=== PATIENT | female | born 1950 | race Hispanic/Latino ===

== ENCOUNTER 2017-11-12 15:44 | Observation (INO) | payer MEDICARE ==
[~2017-11-12] VITALS: Ht 157.5 cm; Wt 75.2 kg
[2017-11-12 16:12] LABS: BASOPHILS % (AUTO) 0.8 % (0.0-5.0); EOSINOPHILS % (AUTO) 4.5 % (0.0-8.0); HEMATOCRIT 22.1 % (36-48); LYMPHOCYTES % (AUTO) 28.7 % (21.0-51.0); MEAN CORPUSCULAR HEMOGLOBIN 23.8 pg (27.0-33.0); MEAN CORPUSCULAR HGB CONC 30.8 g/dL (32.0-36.0); MEAN CORPUSCULAR VOLUME 77.1 fL (79-99); MONOCYTES % (AUTO) 7.2 % (3.0-13.0); NEUTROPHILS % (AUTO) 58.8 % (40.0-77.0); NUCLEATED RED BLOOD CELLS 0.1 % (0.0-0.19); PLATELET COUNT (AUTO) 68 K/uL (130-400); RED BLOOD CELL COUNT(AUTO) 2.86 MIL/uL (4.00-5.50); RED CELL DISTRIBUTION WIDTH 21.5 % (11.0-15.5); WHITE BLOOD COUNT (AUTO) 3.9 K/uL (4.8-10.8)
[2017-11-12 16:25] LABS: CREATININE 0.7 mg/dL (0.5-1.5); INR 1.2 (0.85-1.15); PARTIAL THROMBOPLASTIN TIME 29.5 SEC (26.3-35.5); POTASSIUM 3.7 mmol/L (3.5-5.1); PROTHROMBIN TIME 12.6 SEC (9.6-11.6)
[2017-11-12 16:36] LABS: B-TYPE NATRIURETIC PEPTIDE 77 pg/mL (0-100)
[2017-11-12 16:40] LABS: ALBUMIN 2.4 g/dL (3.5-5.0); BILIRUBIN,TOTAL 2.1 mg/dL (0.2-1.0); CREATINE KINASE MB 1.2 ng/mL (0.5-3.6); TOTAL PROTEIN, SERUM 6.5 g/dL (6.0-8.3)
[2017-11-12] MEDS ORDERED: ONDANSETRON HCL MDV 20ML 2 MG/ML VIAL ONE ×2 (16:43→20:23)
[2017-11-12 16:47] LABS: PLATELET MORPHOLOGY DECREASED
[2017-11-12] MEDS ORDERED: LACTULOSE 20 GM/30 ML UDCUP ONE (18:39)
[2017-11-12] MEDS ORDERED: FUROSEMIDE 10 MG/ML 4ML VIAL ONE (18:44)
[2017-11-12] MEDS ORDERED: ALBUMIN (HUMAN) 25% 0 ML IV ONE (18:53)
[2017-11-12] MEDS ORDERED: ALBUMIN (HUMAN) 25% 100 ML IV ONE (18:54)
[2017-11-12] MEDS ORDERED: MAG HYDROX/AL HYDROX/SIMETH ES 30 ML SUSP UDCUP ONE (20:31)
[2017-11-12] MEDS ORDERED: LIDOCAINE HCL 2% VISCOUS 15 ML UDCUP ONE (20:32)
[2017-11-12] MEDS ORDERED: PANT40TA25 PO (23:30)
[2017-11-12] MEDS ORDERED: FURO40TA7 PO (23:30)
[2017-11-12] MEDS ORDERED: SPIR50TA PO (23:30)
[2017-11-12] MEDS ORDERED: THIA250T6 PO (23:30)
[2017-11-12] MEDS ORDERED: FOLI1TAB15 PO (23:30)
[2017-11-13] VITALS (9 sets, daily range): BP systolic 108–147; BP diastolic 52–76
[2017-11-13] MEDS ORDERED: MEPERIDINE-PF 25 MG/ML SYG IVP PRN (04:30)
[2017-11-13] MEDS ORDERED: LORAZEPAM 2 MG/ML 1 ML VIAL IVP PRN (04:30)
[2017-11-13] MEDS: MEPERIDINE HCL/PF 25 MG/0.5 ML AMPUL ONE ×2 (04:44→04:45)
[2017-11-13] MEDS ORDERED: SODIUM CHLORIDE 0.9% 1000ML 1,000 ML IV SCH (06:04)
[2017-11-13] MEDS ORDERED: IPRATROPIUM/ALBUTEROL SULFATE 3 ML SOLUTION IH PRN (06:15)
[2017-11-13] MEDS ORDERED: LIDOCAINE HCL-MPF 1% 2ML VIAL IVP PRN (06:15)
[2017-11-13] MEDS ORDERED: DEXTROSE 50%-WATER 50 ML DISP.SYRIN IV PRN (06:15)
[2017-11-13] MEDS ORDERED: POTASSIUM CHLORIDE 10% ELIXIR 20 MEQ/15 ML UDCUP PO PRN (06:15)
[2017-11-13] MEDS ORDERED: GLUCAGON 1MG KIT 1 MG ML IM PRN (06:15)
[2017-11-13] MEDS ORDERED: HYDRALAZINE HCL 20 MG/ML VIAL IV PRN (06:15)
[2017-11-13] MEDS ORDERED: POTASSIUM CHLORIDE 20 MEQ ERTAB PO PRN (06:15)
[2017-11-13] MEDS ORDERED: ONDANSETRON HCL 4 MG/2 ML VIAL IVP PRN (06:15)
[2017-11-13] MEDS ORDERED: POTASSIUM CHLORIDE 20MEQ/100ML 100 ML IV PRN (06:15)
[2017-11-13] MEDS ORDERED: ONDANSETRON HCL MDV 20ML 2 MG/ML VIAL IVP PRN (06:19)
[2017-11-13] MEDS: INSULIN HUMULIN R 100 UNIT/ML 3ML SQ SCH ×4 (06:38→21:00)
[2017-11-13 06:39] LABS: HEMATOCRIT 22.4 % (36-48); MEAN CORPUSCULAR HEMOGLOBIN 25.1 pg (27.0-33.0); MEAN CORPUSCULAR HGB CONC 32.2 g/dL (32.0-36.0); NUCLEATED RED BLOOD CELLS 0.1 % (0.0-0.19); PLATELET COUNT (AUTO) 49 K/uL (130-400); RED BLOOD CELL COUNT(AUTO) 2.87 MIL/uL (4.00-5.50); RED CELL DISTRIBUTION WIDTH 20.1 % (11.0-15.5); WHITE BLOOD COUNT (AUTO) 2.5 K/uL (4.8-10.8)
[2017-11-13 06:43] LABS: CREATININE 0.7 mg/dL (0.5-1.5)
[2017-11-13 07:37] LABS: BASOPHILS % (MANUAL) 1 % (0-2); EOSINOPHILS % (MANUAL) 4 % (1-6); LYMPHOCYTES % (MANUAL) 17 % (22-44); MAN.DIFF COMMENT-IMPRESSION MANUAL DIFFERENTIAL; MONOCYTES % (MANUAL) 3 % (2-9); SEGMENTED NEUTROPHILS % 75 % (40-70)
[2017-11-13 08:13] LABS: APPEARANCE,URINE Clear (CLEAR); BILIRUBIN,URINE Small (NEGATIVE); COLOR,URINE Orange (YELLOW); GLUCOSE, URINE (UA) Negative (NEGATIVE); KETONES,URINE Negative (NEGATIVE); LEUKOCYTE ESTERASE ,URINE Trace (NEGATIVE); NITRATE,URINE Positive (NEGATIVE); OCCULT BLOOD,URINE Negative (NEGATIVE); PROTEIN,URINE Negative (NEGATIVE)
[2017-11-13 08:16] LABS: BACTERIA,URINE Rare /HPF (None Seen); RBC,URINE 0-1 /HPF (0-1); SQUAMOUS EPITHELIAL CELL,UR Rare /HPF (0-2); WBC,URINE 0-1 /HPF (0-1)
[2017-11-13] MEDS ORDERED: CEFTRIAXONE 1GM/D5W 50ML 50 ML IV SCH (08:45)
[2017-11-13 08:57] LABS: RETICULOCYTE % (AUTO) 2.42 % (0.42-2.23)
[2017-11-13] MEDS ORDERED: FAMOTIDINE/PF 20 MG/2 ML VIAL IV SCH (09:00)
[2017-11-13] MEDS ORDERED: COMPOUND IV MISC 1 EACH IVSOLN MISC PRN (09:30)
[2017-11-13 09:32] LABS: % IRON SATURATION 14.3 % (22-44)
[2017-11-13] MEDS: LACTULOSE 20 GM/30 ML UDCUP PO SCH ×3 (10:37→22:42)
[2017-11-13] MEDS: PANTOPRAZOLE SODIUM 40 MG TABLET.DR PO SCH ×2 (10:38→10:59)
[2017-11-13] MEDS: IRON SUCROSE COMPLEX 100 MG in SODIUM CHLORIDE 0.9% 50 ML IV SCH (10:58)
[2017-11-13] MEDS: SPIRONOLACTONE 25 MG TAB PO SCH ×2 (10:59→18:37)
[2017-11-13] MEDS: THIAMINE HCL 100 MG TABLET PO SCH (11:00)
[2017-11-13] MEDS: FOLIC ACID 1 MG TABLET PO SCH (11:01)
[2017-11-13] MEDS: CEFTRIAXONE SODIUM 1 GM IVP SCH (11:07)
[2017-11-13] MEDS: FUROSEMIDE 10 MG/ML 4ML VIAL IV SCH ×2 (11:07→18:37)
[2017-11-13 13:03] LABS: GLUCOSE,BODY FLUID 115 mg/dL (1-40)
[2017-11-13 14:28] LABS: SPECIMENTYPE,BODY FLUID THORACENTESIS
[2017-11-13 14:29] LABS: APPEARANCE BODY FLUID CLOUDY (CLEAR); COLOR,BODY FLUID LT YELLOW (LT YELLOW); TOTAL VOLUME,BODY FLUID 1500 mL
[2017-11-13 14:30] LABS: BODY FLUID RBC 143 /cu. mm.; BODY FLUID WBC 39 /cu. mm.
[2017-11-13 14:36] LABS: BF EOSINOPHIL 2 %; BF LYMPHOCYTE 23 %; BF MESOTHELIAL 41 %; BF MONOCYTE 4 %
[2017-11-14 03:00] VITALS: BP 117/60
[2017-11-14 04:29] LABS: HEMATOCRIT 22.2 % (36-48); MEAN CORPUSCULAR HEMOGLOBIN 24.6 pg (27.0-33.0); MEAN CORPUSCULAR HGB CONC 31.9 g/dL (32.0-36.0); MEAN CORPUSCULAR VOLUME 77.2 fL (79-99); NUCLEATED RED BLOOD CELLS 0.1 % (0.0-0.19); PLATELET COUNT (AUTO) 47 K/uL (130-400); RED BLOOD CELL COUNT(AUTO) 2.87 MIL/uL (4.00-5.50); RED CELL DISTRIBUTION WIDTH 20.6 % (11.0-15.5); WHITE BLOOD COUNT (AUTO) 3.1 K/uL (4.8-10.8)
[2017-11-14 04:41] LABS: CREATININE 0.8 mg/dL (0.5-1.5); POTASSIUM 3.4 mmol/L (3.5-5.1)
[2017-11-14] MEDS: INSULIN HUMULIN R 100 UNIT/ML 3ML SQ SCH (07:30)
[2017-11-14 07:38] VITALS: BP 148/59
[2017-11-14] MEDS ORDERED: PANT40TA25 PO (07:53)
[2017-11-14] MEDS: LACTULOSE 20 GM/30 ML UDCUP PO SCH (09:00)
[2017-11-14] MEDS: CEFTRIAXONE SODIUM 1 GM IVP SCH (09:36)
[2017-11-14] MEDS: FOLIC ACID 1 MG TABLET PO SCH (09:37)
[2017-11-14] MEDS: SPIRONOLACTONE 25 MG TAB PO SCH (09:37)
[2017-11-14] MEDS: PANTOPRAZOLE SODIUM 40 MG TABLET.DR PO SCH (09:37)
[2017-11-14] MEDS: THIAMINE HCL 100 MG TABLET PO SCH (09:40)
[2017-11-14] MEDS: IRON SUCROSE COMPLEX 100 MG in SODIUM CHLORIDE 0.9% 50 ML IV SCH (10:27)
[2017-11-14 11:28] VITALS: BP 102/49
== END 2017-11-14 12:30 | disposition home or self-care (01) ==
LOC: EDH 15:44 → EDHIP 20:10 → 3BH 22:07
PROVIDERS: ADMIT Family Medicine; ATTEND Family Medicine
DX: J91.8 Pleural effusion in other conditions classified elsewhere (principal); I10 Essential (primary) hypertension; E03.9 Hypothyroidism, unspecified; D61.818 Other pancytopenia; K70.30 Alcoholic cirrhosis of liver without ascites
CPT/HCPCS: 32555; 36415 ×3; 71045 ×2; 76700; 80048 ×2; 80053; 81001; 82140; 82270; 82550; 82553; 82607; 82728; 82746; 82945; 83615; 83690; 83874; 83880; 83986; 84157; 84484; 85025; 85027 ×2; 85610; 85730; 86850; 86900; 86901; 86922 ×2; 87071; 87088; 87205; 88108; 88305; 89051; 93005; 94664; 96365; 96366; 96375 ×2; 96376 ×2; 99291; A4218 ×2; G0378 ×40; J0696 ×3; J1756 ×2; J1940 ×3; J2175; J3490; J7030; P9016; P9046; P9047

== ENCOUNTER 2017-11-29 01:07 | Emergency (ER) | payer MEDICARE ==
[~2017-11-29 01:07] MED LIST: FOLI1TAB15 PO; FURO40TA7 PO; PANT40TA25 PO; SPIR50TA PO; THIA250T6 PO
[2017-11-29] MEDS ORDERED: HYOSCYAMINE SULFATE 0.125 MG TAB.SUBL SL ONE (02:04)
[2017-11-29] MEDS ORDERED: MAGNESIUM HYDROXIDE 30 ML/UDCUP ONE (02:04)
[2017-11-29] MEDS ORDERED: ONDANSETRON HCL 4 MG/2 ML VIAL ONE ×2 (02:04→02:57)
[2017-11-29] MEDS ORDERED: LIDOCAINE HCL 2% VISCOUS 15 ML UDCUP ONE (02:04)
[2017-11-29 02:15] LABS: BASOPHILS % (AUTO) 0.8 % (0.0-5.0); EOSINOPHILS % (AUTO) 2.7 % (0.0-8.0); HEMATOCRIT 25.1 % (36-48); LYMPHOCYTES % (AUTO) 25.6 % (21.0-51.0); MEAN CORPUSCULAR HEMOGLOBIN 24.8 pg (27.0-33.0); MEAN CORPUSCULAR HGB CONC 31.3 g/dL (32.0-36.0); MEAN CORPUSCULAR VOLUME 79.3 fL (79-99); MONOCYTES % (AUTO) 6.5 % (3.0-13.0); NEUTROPHILS % (AUTO) 64.4 % (40.0-77.0); NUCLEATED RED BLOOD CELLS 0.1 % (0.0-0.19); PLATELET COUNT (AUTO) 30 K/uL (130-400); RED BLOOD CELL COUNT(AUTO) 3.16 MIL/uL (4.00-5.50); RED CELL DISTRIBUTION WIDTH 22.5 % (11.0-15.5); WHITE BLOOD COUNT (AUTO) 2.2 K/uL (4.8-10.8)
[2017-11-29 02:34] LABS: CREATININE 0.6 mg/dL (0.5-1.5); POTASSIUM 3.6 mmol/L (3.5-5.1)
[2017-11-29 02:38] LABS: ALBUMIN 2.5 g/dL (3.5-5.0); BILIRUBIN,TOTAL 2.6 mg/dL (0.2-1.0); TOTAL PROTEIN, SERUM 6.6 g/dL (6.0-8.3)
[2017-11-29 02:52] LABS: PLATELET MORPHOLOGY COMMENT DECREASED
[2017-11-29 02:55] LABS: BAND NEUTROPHILS % (MANUAL) 1 % (0-2); LYMPHOCYTES % (MANUAL) 28 % (22-44); MAN.DIFF COMMENT-IMPRESSION MANUAL DIFFERENTIAL; MONOCYTES % (MANUAL) 4 % (2-9); SEGMENTED NEUTROPHILS % 67 % (40-70)
[2017-11-29 03:14] LABS: APPEARANCE,URINE Clear (CLEAR); BILIRUBIN,URINE Negative (NEGATIVE); COLOR,URINE Yellow (YELLOW); GLUCOSE, URINE (UA) Negative (NEGATIVE); KETONES,URINE Negative (NEGATIVE); LEUKOCYTE ESTERASE ,URINE Trace (NEGATIVE); NITRATE,URINE Negative (NEGATIVE); OCCULT BLOOD,URINE Negative (NEGATIVE); PROTEIN,URINE Negative (NEGATIVE)
[2017-11-29 03:33] LABS: BACTERIA,URINE Rare /HPF (None Seen); RBC,URINE 0-1 /HPF (0-1); SQUAMOUS EPITHELIAL CELL,UR 0-2 /HPF (0-2); WBC,URINE 0-1 /HPF (0-1)
[2017-11-29] MEDS ORDERED: PANTOPRAZOLE SODIUM 40 MG TABLET.DR PO ONE (06:19)
[2017-11-29] MEDS ORDERED: PROMETHAZINE HCL 25 MG/ML 1ML AMPULE IM ONE (06:19)
== END 2017-11-29 07:15 | disposition home or self-care (01) ==
LOC: EDH 01:07
DX: K21.9 Gastro-esophageal reflux disease without esophagitis (principal); K70.31 Alcoholic cirrhosis of liver with ascites; J91.8 Pleural effusion in other conditions classified elsewhere; I10 Essential (primary) hypertension; E07.9 Disorder of thyroid, unspecified
CPT/HCPCS: 36415; 71045; 80053; 81001; 82150; 83690; 83880; 84484 ×2; 85025; 93005 ×2; 96372; 96374; 96375; 99285; J2405 ×2; J2550